=== PATIENT | female | born 1950 | race Caucasian/White ===

== ENCOUNTER → 2016-10-10 | Outpatient (CLI) | payer MEDICARE, BC ==
[~2016-10-10] MED LIST: 8 HOUR PAIN RE650 M1 PO; ALLEGRA180 MG PO; ASCORBIC ACID500 MG PO; ASPIR 8181 MG PO; CENTRUM SILVER1 TAB PO; COLACE100 MG PO; COZAAR50 MG PO; DILAUDID 2MG(HYD2 MG PO; DUREZOL5 ML OPHTH; FEOSOL325 MG PO; FOLIC ACID0.8 M1 PO; HUMALOG100 UNIT/1 SUB-Q; ILEVRO1.7 ML OPHTH; LANTUS (IN100 UNIT/M SUB-Q; LASIX20 MG PO; LEVEMIR100 UNIT/1 SUB-Q; LEVOTHROID(SY175 MCG PO; LIPITOR20 M1 PO; LORTAB 5-325 M1 EACH PO; MIRALAX17 GM PO; MONOPRIL10 MG PO; MOTRIN800 MG PO; NAPROSYN500 MG PO; NOVOLOG100 UNIT/M SUB-Q; OCUVEL CAPSULE1 EACH PO; PRESERVISION A1 EAC1 PO; PRILOSEC20 M1 PO; STOOL SOFTENER1 EACH PO; ULTRAM50 MG PO; VALIUM5 MG PO; XARELTO10 MG PO
[2016-10-10 15:25] LABS: ALBUMIN 3.2 gm/dL (3.5-5.0); ANION GAP 12.4 (10.0-19.0); CALCIUM 8.5 mg/dL (8.5-10.5); CREATININE 1.3 mg/dL (0.5-1.1); MAGNESIUM 1.8 mg/dL (1.8-2.6); PHOSPHORUS 2.8 mg/dL (2.5-4.9); POTASSIUM 4.4 mMol/L (3.7-5.1)
== END ==
LOC: LCNC 14:57
PROVIDERS: Internal Medicine Interventional Cardiology
DX: R00.2 Palpitations (principal); E03.9 Hypothyroidism, unspecified

== ENCOUNTER → 2016-11-04 | Outpatient (CLI) | payer MEDICARE, BC ==
--- NOTE | ~2016-11-04 | ECHO ---
Transthoracic Echocardiography Report (TTE) Demographics Patient Name MANUEL DUMAS Date of Study 11/04/2016 Patient Number [id number] Visit Number [id number] Date of 1950 Room Number Accession Number [id number] Gender Female Age 66 year(s) Referring Renzo Franco MD Accountant Cost Dutch Miranda RDCS, Physician RVT Physician Interpreting Renzo Franco MD Photographic Intelligence Officer Physician Supervising Ordering Physician Renzo Franco MD, MD/MLP Nurse Stress Vascular Tech Conclusions Contractility Score Summary Normal Left Ventricular contractility was noted. Summary The estimated left ventricular ejection fraction is 65%. Moderate to severe concentric left ventricular hypertrophy. Diastolic assessment reveals Grade I diastolic dysfunction. Mild tricuspid regurgitation by color Doppler. There is mild pulmonary hypertension. The pulmonary pressure (RVSP) is 36.73 mmHg. Small circumferential pericardial effusion. Possible echocardiographic evidence of cardiac tamponade. Procedure Type of Study TTE procedure:2D Echocardiogram. Procedure Date Date: 11/04/2016 Start: 02:41 PM Study Location: Echo Lab Technical Quality: Adequate visualization Indications:Shortness of breath. Appropriate Use Criteria: 9 Patient Status: Routine HR: 83 bpm BP: 09779/NaN mmHg Allergies - Penicillin. - Sulfa. - Codiene. - Other:(Meperdine, rofecoxib, pentazocine, plastic tape). M-Mode/2D Measurements LV Diastolic Dimension: 4.05 cm LV Systolic Dimension: 2.32 cm LV Septum Diastolic: 1.57 cm LV PW Diastolic: 1.49 cm Cardiac Output: 5.85 l/min LA Dimension: 4.1 cm Post Pericard Effusion: 1.1 cm LVOT: 1.8 cm LVOT VTI: 27.7 cm RV Base: 2.85 cm LV Stroke volume: 70.45 ml RV Length: 5.81 cm TAPSE: 2.37 cm TDI-S': 13.8 cm/s Doppler Measurements AV Peak Velocity: 1.6 m/s MV Peak E-Wave: 0.92 m/s AV Peak Gradient: 10.24 mmHg MV Peak A-Wave: 1.14 m/s AV Mean Gradient: 6 mmHg MV E/A Ratio: 0.81 LVOT Peak Velocity: 1.26 m/s MV P1/2t: 75 msec TR Gradient:28.73 mmHg PV Peak Velocity: 1.12 m/s Estimated RAP:8 mmHg PV Peak Gradient: 5.02 mmHg Estimated RVSP: 37 mmHg Estimated PASP: 36.73 mmHg E' Septal Velocity: 0.08 m/s A' Septal Velocity: 0.12 m/s E' Lateral Velocity: 0.06 m/s A' Lateral Velocity: 0.13 m/s Findings Left Ventricle Moderate concentric left ventricular hypertrophy. Diastolic assessment reveals Grade I diastolic dysfunction. Right Ventricle Normal right ventricle structure and function. Left Atrium The left atrium is mildly dilated. Right Atrium Normal right atrial size. Mitral Valve Mild mitral regurgitation by color Doppler. Aortic Valve Normal aortic valve structure and function. Tricuspid Valve Mild tricuspid regurgitation by color Doppler. There is mild pulmonary hypertension. The pulmonary pressure (RVSP) is 36.73 mmHg. Pulmonic Valve Normal pulmonic valve structure and function. Pericardial Effusion Small circumferential pericardial effusion. Miscellaneous Visualized portions of the aortic root and ascending aorta appear normal in size. Pleural Effusion No evidence of pleural effusion. Contractility Score LV regional wall motion:(0-Non visualized 1-Normal 2-Hypokinesis 3-Akinesis 4-Dyskinesis 5-Aneurysm) Signature dtt: Salvador Muller (cardio) dtd: 11/04/16 1441 Physician Self Edit
== END | disposition disaster alternative care site (69) ==
LOC: GCAR 14:06
DX: R06.02 Shortness of breath (principal); I51.7 Cardiomegaly; I27.2 Other secondary pulmonary hypertension; I31.3 Pericardial effusion (noninflammatory); I31.4 Cardiac tamponade